=== PATIENT | female | born 1985 | race Hispanic/Latino ===

== ENCOUNTER 2017-04-04 18:27 | Emergency (ER) | payer OTHER ==
[~2017-04-04] VITALS: Ht 154.9 cm; Wt 64.5 kg
[2017-04-04] MEDS ORDERED: ACETAMINOPHEN 325 MG TAB PO ONE (21:30)
[2017-04-04] MEDS ORDERED: ONDANSETRON 4 MG ORAL DISINTEGRATING TAB (S0181) PO ONE (21:30)
--- NOTE | 2017-04-04 22:20 | REPUSA ---
CT of the head Technique: Multiple axial CT images were obtained through the head without administration of contrast . Findings: The ventricles and sulci are symmetric bilaterally. There is no evidence of acute hemorrhag e or infarct. There is no midline shift, mass effect, or extra-axial fluid collection. The osseous structures are unremarkable. The visualized paranasal sinuses and mastoid air cells are c lear. Impression: Negative study.
[2017-04-04 22:41] VITALS: BP 112/56
== END 2017-04-04 22:41 | disposition home or self-care (01) ==
LOC: M ED 18:27
DX: G43.009 Migraine without aura, not intractable, without status migrainosus (principal); Z88.0 Allergy status to penicillin

== ENCOUNTER → 2017-04-05 | Outpatient (CLI) | payer OTHER ==
[~2017-04-05] MED LIST: ISOVUE-370 76% 100ML VIAL (Q9967) As Ordered ONE
--- NOTE | 2017-04-05 14:34 | REP ---
HYSTEROSALPINGOGRAM: HISTORY: Infertility. 35 seconds of fluoroscopy time was utilized. PROCEDURE: Injection procedure is performed by the referring [facility] service. Fluoroscopic spot radiographs were obtained during endometrial contrast injection. FINDINGS: Initial images demonstrate a normally opacified, normal shape endometrial cavity. There is prompt symmetric filling of the isthmic and ampullary segments of the fallopian tube, and bilateral tubal patency was observed with peritoneal spillage. 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 Drainage view shows no cervical abnormality. IMPRESSION: 1. Bilateral tubal patency is observed. 2. The isthmic segment of the left fallopian tube is abnormal in a pattern consistent with salpingitis isthmica nodosa. Signed by Micha Kaufman MD 04/05/2017 05:23 P
== END ==
LOC: M RADPRO 11:30
PROVIDERS: ATTEND Obstetrics & Gynecology
DX: N97.9 Female infertility, unspecified (principal); Z88.0 Allergy status to penicillin
CPT/HCPCS: 58340; 74740; Q9967